=== PATIENT | male | born 1965 | race Caucasian/White ===

== ENCOUNTER 2018-07-12 09:00 | Emergency (ER) | payer SELFPAY ==
[~2018-07-12] VITALS: Ht 177.8 cm; Wt 99.8 kg
[~2018-07-12 09:00] MED LIST: BACTRIM DS 8001 TA1 PO; KEFLEX500 MG PO; NAPROSYN500 MG PO; NKHM; NORCO 325 MG-51 TAB PO; TOBREX OPHTH S2.5 ML OPH; VICODIN 500 MG-1 TAB PO
[2018-07-12] MEDS ORDERED: LIDEX 0.05% CRE15 GM T (09:10)
[2018-07-12] MEDS ORDERED: PREDNISONE20 M1 PO (09:10)
== END 2018-07-12 09:19 | disposition home or self-care (01) ==
LOC: ED 09:00
DX: L25.9 Unspecified contact dermatitis, unspecified cause (principal); Z88.8 Allergy status to other drugs, medicaments and biological substances